=== PATIENT | male | born 2000 | race Caucasian/White ===

== ENCOUNTER 2018-06-20 18:48 | Observation (INO) ==
[2018-06-20] MEDS ORDERED: Dextrose 50% in Water 50 ML Vial IV.PUSH PRN ×2 (19:48→21:44)
[2018-06-20] MEDS ORDERED: Sod Chloride 0.9% Inj 1,000 ML IV.SIG ONE (19:48)
--- NOTE | 2018-06-20 19:52 | ED ---
HPI General Chief complaint: Recheck/Abnormal Lab/Rx Stated complaint: high blood sugar Time Seen by Provider: 06/20/18 19:41 Source: patient and other (family friend/ BRUSH WORKER) Mode of arrival: ambulatory Limitations: no limitations History of Present Illness HPI narrative: 17-year-old male presents to the emergency department by private transportation the care of family friend who is a BRUSH WORKER presents for evaluation of unintentional 25 pound weight loss over the past 4 weeks, polydipsia polyuria and today noted to have elevated blood sugar by family friends glucometer. Patient reportedly is otherwise in good health with no medical concerns or conditions. Patient remotely treated for ADHD was on Adderall but has not been on this medication recently. Patient has been feeling well other than weight loss and marked increased thirst. Patient is also noticed increased urine output. No report of polyphagia. Patient's had no fever no chills no nausea no vomiting. Family history of diabetes in grandfather. Onset (ago): day(s) Related Data Home Medications Medication Instructions Recorded Confirmed No Known Home Medications 06/20/18 06/20/18 Allergies Allergy/AdvReac Type Severity Reaction Status Date / Time No Known Allergies Allergy Verified 06/20/18 19:27 [facility] Medical History Medical History ADHD (Acute) Surgical History Surgical History No history of previous surgery (Acute) Social History Social History Substance History: No History of Abuse Second Hand Smoke Exposure: No Smoking Status: Never smoker How Often Do You Have a Drink Containing Alcohol: Never Recent Travel in [place] within the Last 8 Weeks: No Recent Out of Country Travel within the Last 8 Weeks: No Immunization History Tetanus Immunization: Unsure Hx Influenza Vaccine This Season: No Course Initial Documented Vital Signs Temperature 98.9 F 06/20/18 19:27 Pulse Rate 74 06/20/18 19:27 Respiratory Rate 18 06/20/18 19:27 Blood Pressure 140/73 06/20/18 19:27 Pulse Oximetry 97 06/20/18 19:27 Last Documented Vital Signs Temperature 98.9 F 06/20/18 19:27 Pulse Rate 72 06/20/18 20:39 Respiratory Rate 18 06/20/18 20:39 Blood Pressure 133/70 06/20/18 20:39 Pulse Oximetry 98 06/20/18 20:40 Medical Decision Making [facility] Narrative Medical decision making narrative: 17-year-old male presents to the emergency department for 1 month weight loss with polyuria and polydipsia no polyphagia. Patient was identified to have elevated blood sugar read as high by glucometer at home IV access obtained specimens collected and sent for resulting Bedside BGM read as greater than 600 Called with serum glucose of 655 patient is a received a liter of fluid given additional liter of normal saline and 7 units regular insulin IV for new onset diabetes bicarb and anion gap pending however venous pH in normal range at 7.36 and bicarb 27.7 no evidence of acidosis as of this time. Bicarb and anion gap are not abnormal at this time however. Beta- hydroxybutyric acid level is elevated at 2.21; patient will be admitted for new onset diabetes. Patient's potassium level is in normal range and creatinine are found to be in normal range. Repeat post insulin bgm: 357. Patient informed of plan for admission Discussed case with [facility] MD Dr Zepeda -- agrees to admit to his service as observation Medical Screen Exam Complete: Yes Emergency Medical Condition: Yes Differential Diagnosis Differential Diagnosis: Weight loss, new-onset diabetes, DKA, thyroid dysfunction Medical Records Medical records reviewed: Yes I reviewed the patient's medical records. Lab Data Lab results reviewed: Yes I reviewed the patient's lab results. Result diagrams: 06/20/18 20:15 06/20/18 20:15 Lab Results 06/20/18 06/20/18 06/20/18 Range/Units 20:10 20:15 20:15 CBC w Diff Auto diff final WBC 4.3 (4.0-11.0) th/mm3 RBC 4.89 (4.50-5.90) mil/mm3 Hgb 14.6 (13.0-17.0) gm/dL Hct 42.8 (39.0-51.0) % MCV 87.5 (80.0-100.0) fL MCH 29.8 (27.0-34.0) pg MCHC 34.0 (32.0-36.0) % RDW 11.8 (11.6-17.2) % Plt Count 230 (150-450) th/mm3 MPV 10.1 (7.0-11.0) fL Neut % (Auto) 52.4 (16.0-70.0) % Lymph % (Auto) 37.4 (9.0-44.0) % [place] % (Auto) 6.7 (0.0-8.0) % Eos % (Auto) 2.3 (0.0-4.0) % Baso % (Auto) 1.2 (0.0-2.0) % Neut # (Auto) 2.2 (1.8-7.7) th/mm3 Lymph # (Auto) 1.6 (1.0-4.8) th/mm3 [place] # (Auto) 0.3 (0.0-0.9) th/mm3 Eos # (Auto) 0.1 (0.0-0.4) th/mm3 Baso # (Auto) 0.1 (0.0-0.2) th/mm3 WBC Differential . Differential Comment . Puncture Site Right ac Patient Temperature 98.6 VBG pH 7.36 (7.360-7.400) VBG pCO2 51 H (44-48) mmHG VBG pO2 27 L* (35-40) mmHG VBG HCO3 28 H (22-26) mmol/L VBG O2 Saturation 47 L (70-76) % VBG O2 Content 10.0 (9.0-17.0) Vol % VBG Base Excess 2.7 H (-2-2) mmol/L VBG Carboxyhemoglobin 1.1 (0-4) % VBG Methemoglobin 1.6 (0-2) % Hemoglobin 15.2 (12.0-16.0) G/DL Inspired O2 21 % Critical Value Yes Sodium 129 L (136-145) meq/L Potassium 4.3 (3.5-5.1) meq/L Chloride 92 L (98-107) meq/L Carbon Dioxide 27.2 (21.0-32.0) meq/L Anion Gap 10 (5-15) meq/L BUN 11 (7-18) mg/dL Creatinine 1.20 (0.60-1.30) mg/dL Estimated GFR 78 L (>89) mL/min POC Glucose (68-110) mg/dl Random Glucose 655 H* (74-106) mg/dL Calcium 9.1 (8.5-10.1) mg/dL Magnesium 2.3 (1.5-2.5) mg/dL Total Bilirubin 0.9 (0.2-1.0) mg/dL AST 22 (15-39) U/L ALT 52 (9-52) U/L Alkaline Phosphatase 151 H (45-117) U/L Total Protein 7.8 (6.4-8.2) g/dL Albumin 4.6 (3.4-5.0) g/dL Beta-Hydroxybutyric Acd 2.21 H (0.00-0.39) mmol/L Urine Color (Yellw/Straw) Urine Clarity (Clear) Urine pH (5.0-8.5) Ur Specific [place] (1.002-1.035) Urine Protein (Neg-Trace) mg/dL Urine Glucose (UA) (Negative) mg/dL Urine Ketones (Negative) mg/dL Urine Occult Blood (Negative) Urine Nitrate (Negative) Urine Bilirubin (Negative) Urine Urobilinogen (Less than 2) mg/dL Ur Leukocyte Esterase (Negative) Urine RBC (0-3) /hpf Micro UA Comment Ur Microscopic Review Urine Culture Comments 06/20/18 06/20/18 06/20/18 Range/Units 20:25 20:30 21:19 CBC w Diff WBC (4.0-11.0) th/mm3 RBC (4.50-5.90) mil/mm3 Hgb (13.0-17.0) gm/dL Hct (39.0-51.0) % MCV (80.0-100.0) fL MCH (27.0-34.0) pg MCHC (32.0-36.0) % RDW (11.6-17.2) % Plt Count (150-450) th/mm3 MPV (7.0-11.0) fL Neut % (Auto) (16.0-70.0) % Lymph % (Auto) (9.0-44.0) % [place] % (Auto) (0.0-8.0) % Eos % (Auto) (0.0-4.0) % Baso % (Auto) (0.0-2.0) % Neut # (Auto) (1.8-7.7) th/mm3 Lymph # (Auto) (1.0-4.8) th/mm3 [place] # (Auto) (0.0-0.9) th/mm3 Eos # (Auto) (0.0-0.4) th/mm3 Baso # (Auto) (0.0-0.2) th/mm3 WBC Differential Differential Comment Puncture Site Patient Temperature VBG pH (7.360-7.400) VBG pCO2 (44-48) mmHG VBG pO2 (35-40) mmHG VBG HCO3 (22-26) mmol/L VBG O2 Saturation (70-76) % VBG O2 Content (9.0-17.0) Vol % VBG Base Excess (-2-2) mmol/L VBG Carboxyhemoglobin (0-4) % VBG Methemoglobin (0-2) % Hemoglobin (12.0-16.0) G/DL Inspired O2 % Critical Value Sodium (136-145) meq/L Potassium (3.5-5.1) meq/L Chloride (98-107) meq/L Carbon Dioxide (21.0-32.0) meq/L Anion Gap (5-15) meq/L BUN (7-18) mg/dL Creatinine (0.60-1.30) mg/dL Estimated GFR (>89) mL/min POC Glucose Greater than 600 H* 358 H (68-110) mg/dl Random Glucose (74-106) mg/dL Calcium (8.5-10.1) mg/dL Magnesium (1.5-2.5) mg/dL Total Bilirubin (0.2-1.0) mg/dL AST (15-39) U/L ALT (9-52) U/L Alkaline Phosphatase (45-117) U/L Total Protein (6.4-8.2) g/dL Albumin (3.4-5.0) g/dL Beta-Hydroxybutyric Acd (0.00-0.39) mmol/L Urine Color Straw (Yellw/Straw) Urine Clarity Clear (Clear) Urine pH 6.0 (5.0-8.5) Ur Specific [place] Less/equal 1.005 (1.002-1.035) Urine Protein Negative (Neg-Trace) mg/dL Urine Glucose (UA) 1000 or greater H (Negative) mg/dL Urine Ketones 15 H (Negative) mg/dL Urine Occult Blood Negative (Negative) Urine Nitrate Negative (Negative) Urine Bilirubin Negative (Negative) Urine Urobilinogen 0.2 (Less than 2) mg/dL Ur Leukocyte Esterase Negative (Negative) Urine RBC 0-3 (0-3) /hpf Micro UA Comment Culture not ind Ur Microscopic Review Microscopic reviewed Urine Culture Comments Culture not ind Discharge Plan Discharge Disposition Patient Disposition: 30 Still Patient Discharge Condition Condition: Stable Discharge Details Diagnosis: New onset type 1 diabetes mellitus, uncontrolled Physicians Team ED Provider: Albina Browning Primary Care Provider: Emery Dunn Rxs /Orders / Referrals /Forms Prescriptions: No Action No Known Home Medications RF: 0 Status ED Status: With Doctor
[2018-06-20 20:19] LABS: Baso # (Auto) 0.1 th/mm3 (0.0-0.2); Baso % (Auto) 1.2 % (0.0-2.0); Eos # (Auto) 0.1 th/mm3 (0.0-0.4); Eos % (Auto) 2.3 % (0.0-4.0); Hematocrit 42.8 % (39.0-51.0); Hemoglobin 14.6 gm/dL (13.0-17.0); Lymph # (Auto) 1.6 th/mm3 (1.0-4.8); Lymph % (Auto) 37.4 % (9.0-44.0); Mean Corpuscular Hemoglobin 29.8 pg (27.0-34.0); Mean Corpuscular Volume 87.5 fL (80.0-100.0); Mean Platelet Volume 10.1 fL (7.0-11.0); Mono # (Auto) 0.3 th/mm3 (0.0-0.9); Mono % (Auto) 6.7 % (0.0-8.0); Neut # (Auto) 2.2 th/mm3 (1.8-7.7); Neut % (Auto) 52.4 % (16.0-70.0); Platelet Count 230 th/mm3 (150-450); Red Blood Count 4.89 mil/mm3 (4.50-5.90); Red Cell Distribution Width 11.8 % (11.6-17.2); White Blood Count 4.3 th/mm3 (4.0-11.0)
[2018-06-20 20:23] LABS: VBG Base Excess 2.7 mmol/L (-2-2); VBG PCO2 51 mmHG (44-48); VBG PH 7.36 (7.360-7.400); VBG PO2 27 mmHG (35-40)
[2018-06-20 20:26] LABS: Chloride 92 meq/L (98-107); Potassium 4.3 meq/L (3.5-5.1); Sodium 129 meq/L (136-145)
[2018-06-20 20:31] LABS: Albumin 4.6 g/dL (3.4-5.0); Anion Gap 10 meq/L (5-15); Blood Urea Nitrogen 11 mg/dL (7-18); Calcium 9.1 mg/dL (8.5-10.1); Carbon Dioxide 27.2 meq/L (21.0-32.0); Magnesium 2.3 mg/dL (1.5-2.5)
[2018-06-20 20:33] LABS: Alanine Aminotransferase 52 U/L (9-52); Aspartate Aminotransferase 22 U/L (15-39)
[2018-06-20 20:34] LABS: Beta Hydroxybutyric Acid 2.21 mmol/L (0.00-0.39); Glomerular Filtration Rate 78 mL/min (>89)
[2018-06-20 20:35] LABS: Total Protein 7.8 g/dL (6.4-8.2)
[2018-06-20 20:37] LABS: Alkaline Phosphatase 151 U/L (45-117)
[2018-06-20 20:38] LABS: Glucose,Random 655 mg/dL (74-106)
[2018-06-20 20:43] LABS: Bilirubin,Urine Negative (Negative); Clarity,Urine Clear (Clear); Leukocyte Esterase,Urine Negative (Negative); Nitrite,Urine Negative (Negative); Specific Gravity,Urine Less/Equal 1.005 (1.002-1.035); Urobilinogen,Urine 0.2 mg/dL (Less than 2)
[2018-06-20] MEDS ORDERED: Sod Chloride 0.9% Inj 1,000 ML IV.SIG SCH (20:45)
[2018-06-20 20:46] LABS: Color,Urine Straw (Yellw/Straw)
[2018-06-20 20:47] LABS: RBC,Urine 0-3 /hpf (0-3)
[2018-06-20] MEDS ORDERED: Insulin Detemir Inj 1,000 UNIT/10 ML Vial SQ SCH (21:45)
[2018-06-20] MEDS ORDERED: Bisacodyl 10 MG Supp RECTAL PRN (21:46)
[2018-06-20] MEDS: Sod Chloride 0.9% Inj 1,000 ML IV.CONT SCH (22:01)
[2018-06-20 22:58] LABS: Amphetamine Screen,Urine Neg (Neg); Barbiturate Screen,Urine Neg (Neg); Cannabinoid Screen,Urine Neg (Neg); Cocaine Screen,Urine Neg (Neg)
[2018-06-20 23:07] LABS: Opiate Screen,Urine Neg (Neg)
[2018-06-21] MEDS: Insulin NovoLOG Aspart Correctional Sugar Inj SQ SCH ×4 (03:17→17:13)
[2018-06-21 06:05] LABS: Baso # (Auto) 0.1 th/mm3 (0.0-0.2); Baso % (Auto) 2.6 % (0.0-2.0); Eos # (Auto) 0.2 th/mm3 (0.0-0.4); Hemoglobin 13.1 gm/dL (13.0-17.0); Lymph # (Auto) 2.3 th/mm3 (1.0-4.8); Lymph % (Auto) 44.9 % (9.0-44.0); Mean Corpuscular HGB Conc 33.6 % (32.0-36.0); Mean Corpuscular Hemoglobin 29.4 pg (27.0-34.0); Mean Corpuscular Volume 87.6 fL (80.0-100.0); Mean Platelet Volume 9.8 fL (7.0-11.0); Mono # (Auto) 0.4 th/mm3 (0.0-0.9); Mono % (Auto) 7.7 % (0.0-8.0); Neut # (Auto) 2.1 th/mm3 (1.8-7.7); Neut % (Auto) 40.8 % (16.0-70.0); Platelet Count 200 th/mm3 (150-450); Red Blood Count 4.45 mil/mm3 (4.50-5.90); Red Cell Distribution Width 11.7 % (11.6-17.2); White Blood Count 5.1 th/mm3 (4.0-11.0)
[2018-06-21] MEDS ORDERED: Acetaminophen 325 MG Tablet PO PRN (06:17)
[2018-06-21] MEDS ORDERED: Senna/Docusate Sodium 8.6/50 MG Tablet PO PRN (06:17)
[2018-06-21] MEDS ORDERED: Docusate Sodium 100 MG Capsule PO PRN (06:17)
[2018-06-21] MEDS ORDERED: Aluminum/Magnesium/Simethacone Susp 30 ML UDC PO PRN (06:17)
[2018-06-21 06:35] LABS: Alanine Aminotransferase 45 U/L (9-52); Albumin 3.6 g/dL (3.4-5.0); Alkaline Phosphatase 98 U/L (45-117); Anion Gap 7 meq/L (5-15); Aspartate Aminotransferase 21 U/L (15-39); Blood Urea Nitrogen 8 mg/dL (7-18); Calcium 8.2 mg/dL (8.5-10.1); Carbon Dioxide 28.1 meq/L (21.0-32.0); Chloride 106 meq/L (98-107); Glomerular Filtration Rate Greater Than 89 mL/min (>89); Glucose,Random 209 mg/dL (74-106); Potassium 3.6 meq/L (3.5-5.1); Sodium 141 meq/L (136-145); Total Protein 6.1 g/dL (6.4-8.2)
[2018-06-21] MEDS: Sod Chloride 0.9% Inj 1,000 ML IV.CONT SCH (08:01)
--- NOTE | 2018-06-21 11:04 | P.HP ---
History of Present Illness Primary Care Physician: Emery Dunn MD Chief Complaint: Elevated blood sugar History of Present Illness: This is a 17-year-old male with no significant past medical history. He presents to the emergency department because of elevated blood sugar. He has been having polyuria, polydipsia and an intentional weight loss of 22 pounds for the past 3-4 weeks. No visual changes. He was left to the care of a family friend who is a BIOLOGICAL TECHNICAL OFFICER. She then checked his fingerstick which was elevated, blood glucose of 677 on admission. Anion gap was within normal limits pH of 7.35. Patient was then started on aggressive IV hydration and has received a total of 18 units of short acting insulin. At this time he is feeling much better without symptoms and wants to be discharged at the day and of the day. He will be under the care of a nurse family friend. Patient also has an appointment with his PCP tomorrow at 8:30 in the morning. All other systems reviewed negative. No recent URI. Denies abdominal pain. Review of Systems All other systems reviewed negative except as stated in HPI PMFSH - History History Provided By: Patient - Medical History Medical History: Medical History (Last Reviewed 06/21/18 @ 13:41 by Diaz Orozco MD) ADHD - Surgical History Surgical History: Surgical History (Last Reviewed 06/21/18 @ 13:41 by Diaz Orozco MD) No history of previous surgery - Family History Family History: Family History (Last Updated 06/21/18 @ 13:41 by Diaz Orozco MD) Other Family history of diabetes mellitus - Tobacco History Second Hand Smoke Exposure: No Tobacco Use In Past 30 Days: No Smoking Status: Never smoker - Alcohol History How Often Do You Have a Drink Containing Alcohol: Never - Substance Use History Substance History: No History of Abuse - Travel History Recent Travel in the [place] Within the Last 8 Weeks: No Recent Travel Out of the Country Within the Last 8 Weeks: No - Immunization History Tetanus Immunization: <5 Years Hx Influenza Vaccine This Season: No Medications and Allergies Active Medications: Active Medications Acetaminophen (Tylenol) 650 mg PO Q4H PRN PRN Reason: Temp > 100.4 Al Hydrox/Mg Hydrox/Simethicone (Mag-Al Plus Susp Liq) 30 ml PO Q6H PRN PRN Reason: DYSPEPSIA Al Hydroxide/Mg Hydroxide (Milk Of Magnesia Liq) 30 ml PO Q12H PRN PRN Reason: Mild Constipation Bisacodyl (Dulcolax Supp) 10 mg RECTAL DAILY PRN PRN Reason: SEVERE CONSITIPATION Calcium Carbonate (Tums Chew) 1,000 mg CHEW TID PRN PRN Reason: DYSPEPSIA Dextrose (D50w Vial) 50 ml IV.PUSH UNSCH PRN PRN Reason: PER HYPOGLYCEMIA PROTOCOL Docusate Sodium (Colace) 100 mg PO BID PRN PRN Reason: CONSTIPATION Glucagon (Glucagon Inj) 1 mg OTHER PRN PRN PRN Reason: for Hypoglycemia Protocol Sodium Chloride (Ns Inj) 1,000 mls @ 100 mls/hr IV.CONT .Q10H JANETH Last Infusion: 06/20/18 23:02 Dose: 100 mls/hr Potassium Chloride/Sodium Chloride (Ns + Kcl 20 Meq Inj) 1,000 mls @ 100 mls/ hr IV.CONT .Q10H JANETH Last Admin: 06/21/18 08:42 Dose: 100 mls/hr Insulin Aspart (Novolog Insulin Correctional Sugar Inj) 0 unit SQ ACHS AND 3AM JANETH; Protocol Last Admin: 06/21/18 08:42 Dose: 1 unit Lactulose (Lactulose Liq) 30 ml PO DAILY PRN PRN Reason: SEVERE CONSITIPATION Ondansetron HCl (Zofran Inj) 4 mg IV.PUSH Q6H PRN PRN Reason: NAUSEA Senna/Docusate Sodium (Yesi-Colace) 1 tab PO BID PRN PRN Reason: CONSTIPATION Sennosides (Senokot) 17.2 mg PO Q12H PRN PRN Reason: Moderate Constipation Sodium Chloride (Ns Flush) 2 ml IV.FLUSH PRN PRN PRN Reason: FLUSH AFTER USING IV ACCESS Last Admin: 06/20/18 21:12 Dose: 2 ml Allergies Allergy/AdvReac Type Severity Reaction Status Date / Time No Known Allergies Allergy Verified 06/20/18 19:27 Home Medications Medication Instructions Recorded Confirmed Type No Known Home Medications 06/20/18 06/20/18 History Exam Vital signs: Vital Signs 06/20/18 19:27 06/20/18 20:39 06/20/18 20:40 Temperature 98.9 F Pulse Rate 74 72 Respiratory Rate 18 18 Blood Pressure 140/73 133/70 Pulse Oximetry 97 98 98 06/20/18 22:59 06/21/18 00:00 06/21/18 08:00 Temperature 97.8 F 97.2 F L Pulse Rate 70 84 93 H Respiratory Rate 18 18 19 Blood Pressure 128/76 124/64 116/71 Pulse Oximetry 98 97 97 Intake & Output 06/20/18 06/21/18 06/21/18 18:59 06:59 18:59 Intake Total 2200 / 2200 240 / 240 Balance 2200 / 2200 240 / 240 Weight 73.8 kg Intake: IV 1999 NS Inj 1,000 ML @ Wide Open IV. 1999 SIG BOLUS JANETH Rx#:[id number] Oral 200 / 200 240 / 240 Other: # Voids 2 Weight On Admission 73.7 kg Narrative: GENERAL: Well-developed, well-nourished in no distress SKIN: Warm and dry. HEAD: Atraumatic. Normocephalic. EYES: Pupils equal and round. No scleral icterus. No injection or drainage. ENT: No nasal bleeding or discharge. Mucous membranes pink and moist. NECK: Trachea midline. No JVD. CARDIOVASCULAR: Regular rate and rhythm. RESPIRATORY: No accessory muscle use. Clear to auscultation. Breath sounds equal bilaterally. GASTROINTESTINAL: Abdomen soft, non-tender, nondistended. MUSCULOSKELETAL: Extremities without clubbing, cyanosis, or edema. No obvious deformities. NEUROLOGICAL: Awake and alert. No obvious cranial nerve deficits. Motor grossly within normal limits. Five out of 5 muscle strength in the arms and legs. Normal speech. PSYCHIATRIC: Appropriate mood and affect; insight and judgment normal. Results - Labs CBC & Chem 7: 06/21/18 05:29 06/21/18 05:29 Labs: Laboratory Results - last 24 hr 06/20/18 06/20/18 06/20/18 20:10 20:15 20:15 CBC w Diff Auto diff final WBC 4.3 RBC 4.89 Hgb 14.6 Hct 42.8 MCV 87.5 MCH 29.8 MCHC 34.0 RDW 11.8 Plt Count 230 MPV 10.1 Neut % (Auto) 52.4 Lymph % (Auto) 37.4 [place] % (Auto) 6.7 Eos % (Auto) 2.3 Baso % (Auto) 1.2 Neut # (Auto) 2.2 Lymph # (Auto) 1.6 [place] # (Auto) 0.3 Eos # (Auto) 0.1 Baso # (Auto) 0.1 WBC Differential . Differential Comment . Puncture Site Right ac Patient Temperature 98.6 VBG pH 7.36 VBG pCO2 51 H VBG pO2 27 L* VBG HCO3 28 H VBG O2 Saturation 47 L VBG O2 Content 10.0 VBG Base Excess 2.7 H VBG Carboxyhemoglobin 1.1 VBG Methemoglobin 1.6 Hemoglobin 15.2 Inspired O2 21 Critical Value Yes Sodium 129 L Potassium 4.3 Chloride 92 L Carbon Dioxide 27.2 Anion Gap 10 BUN 11 Creatinine 1.20 Estimated GFR 78 L POC Glucose Random Glucose 655 H* Calcium 9.1 Magnesium 2.3 Total Bilirubin 0.9 AST 22 ALT 52 Alkaline Phosphatase 151 H Total Protein 7.8 Albumin 4.6 Beta-Hydroxybutyric Acd 2.21 H Urine Color Urine Clarity Urine pH Ur Specific [place] Urine Protein Urine Glucose (UA) Urine Ketones Urine Occult Blood Urine Nitrate Urine Bilirubin Urine Urobilinogen Ur Leukocyte Esterase Urine RBC Micro UA Comment Ur Microscopic Review Urine Culture Comments Urine Opiates Screen Ur Barbiturates Screen Ur Amphetamines Screen U Benzodiazepines Scrn Urine Cocaine Screen U Cannabinoids Screen 06/20/18 06/20/18 06/20/18 20:25 20:30 20:30 CBC w Diff WBC RBC Hgb Hct MCV MCH MCHC RDW Plt Count MPV Neut % (Auto) Lymph % (Auto) [place] % (Auto) Eos % (Auto) Baso % (Auto) Neut # (Auto) Lymph # (Auto) [place] # (Auto) Eos # (Auto) Baso # (Auto) WBC Differential Differential Comment Puncture Site Patient Temperature VBG pH VBG pCO2 VBG pO2 VBG HCO3 VBG O2 Saturation VBG O2 Content VBG Base Excess VBG Carboxyhemoglobin VBG Methemoglobin Hemoglobin Inspired O2 Critical Value Sodium Potassium Chloride Carbon Dioxide Anion Gap BUN Creatinine Estimated GFR POC Glucose Greater than 600 H* Random Glucose Calcium Magnesium Total Bilirubin AST ALT Alkaline Phosphatase Total Protein Albumin Beta-Hydroxybutyric Acd Urine Color Straw Urine Clarity Clear Urine pH 6.0 Ur Specific [place] Less/equal 1.005 Urine Protein Negative Urine Glucose (UA) 1000 or greater H Urine Ketones 15 H Urine Occult Blood Negative Urine Nitrate Negative Urine Bilirubin Negative Urine Urobilinogen 0.2 Ur Leukocyte Esterase Negative Urine RBC 0-3 Micro UA Comment Culture not ind Ur Microscopic Review Microscopic reviewed Urine Culture Comments Culture not ind Urine Opiates Screen Neg Ur Barbiturates Screen Neg Ur Amphetamines Screen Neg U Benzodiazepines Scrn Neg Urine Cocaine Screen Neg U Cannabinoids Screen Neg 06/20/18 06/21/18 06/21/18 21:19 03:08 05:23 CBC w Diff WBC RBC Hgb Hct MCV MCH MCHC RDW Plt Count MPV Neut % (Auto) Lymph % (Auto) [place] % (Auto) Eos % (Auto) Baso % (Auto) Neut # (Auto) Lymph # (Auto) [place] # (Auto) Eos # (Auto) Baso # (Auto) WBC Differential Differential Comment Puncture Site Patient Temperature VBG pH VBG pCO2 VBG pO2 VBG HCO3 VBG O2 Saturation VBG O2 Content VBG Base Excess VBG Carboxyhemoglobin VBG Methemoglobin Hemoglobin Inspired O2 Critical Value Sodium Potassium Chloride Carbon Dioxide Anion Gap BUN Creatinine Estimated GFR POC Glucose 358 H 267 H Random Glucose Calcium Magnesium 2.1 Total Bilirubin AST ALT Alkaline Phosphatase Total Protein Albumin Beta-Hydroxybutyric Acd Urine Color Urine Clarity Urine pH Ur Specific [place] Urine Protein Urine Glucose (UA) Urine Ketones Urine Occult Blood Urine Nitrate Urine Bilirubin Urine Urobilinogen Ur Leukocyte Esterase Urine RBC Micro UA Comment Ur Microscopic Review Urine Culture Comments Urine Opiates Screen Ur Barbiturates Screen Ur Amphetamines Screen U Benzodiazepines Scrn Urine Cocaine Screen U Cannabinoids Screen 06/21/18 06/21/18 06/21/18 05:29 05:29 08:09 CBC w Diff Auto diff final WBC 5.1 RBC 4.45 L Hgb 13.1 Hct 39.0 MCV 87.6 MCH 29.4 MCHC 33.6 RDW 11.7 Plt Count 200 MPV 9.8 Neut % (Auto) 40.8 Lymph % (Auto) 44.9 H [place] % (Auto) 7.7 Eos % (Auto) 4.0 Baso % (Auto) 2.6 H Neut # (Auto) 2.1 Lymph # (Auto) 2.3 [place] # (Auto) 0.4 Eos # (Auto) 0.2 Baso # (Auto) 0.1 WBC Differential . Differential Comment . Puncture Site Patient Temperature VBG pH VBG pCO2 VBG pO2 VBG HCO3 VBG O2 Saturation VBG O2 Content VBG Base Excess VBG Carboxyhemoglobin VBG Methemoglobin Hemoglobin Inspired O2 Critical Value Sodium 141 D Potassium 3.6 Chloride 106 D Carbon Dioxide 28.1 Anion Gap 7 BUN 8 Creatinine 0.79 Estimated GFR Greater than 89 POC Glucose 195 H Random Glucose 209 H D Calcium 8.2 L D Magnesium Total Bilirubin 0.6 AST 21 ALT 45 Alkaline Phosphatase 98 Total Protein 6.1 L D Albumin 3.6 D Beta-Hydroxybutyric Acd Urine Color Urine Clarity Urine pH Ur Specific [place] Urine Protein Urine Glucose (UA) Urine Ketones Urine Occult Blood Urine Nitrate Urine Bilirubin Urine Urobilinogen Ur Leukocyte Esterase Urine RBC Micro UA Comment Ur Microscopic Review Urine Culture Comments Urine Opiates Screen Ur Barbiturates Screen Ur Amphetamines Screen U Benzodiazepines Scrn Urine Cocaine Screen U Cannabinoids Screen Caprini VTE Risk Assessment Caprini VTE Risk Assessment: No/Low Risk (score <= 1) Caprini Risk Assessment Model: Point Value = 1 Point Value = 2 Point Value = 3 Point Value = 5 Age 41-60 Minor surgery BMI > 25 kg/m2 Swollen legs Varicose veins or History of unexplained or recurrent spontaneous Oral contraceptives or hormone replacement Sepsis (< 1 month) Serious lung disease, including pneumonia (< 1 month) Abnormal pulmonary function Acute myocardial infarction Congestive heart failure (< 1 month) History of inflammatory bowel disease Medical patient at bed rest Age 61-74 Arthroscopic surgery Major open surgery (> 45 min) Laparoscopic surgery (> 45 min) Malignancy Confined to bed (> 72 hours) Immobilizing plaster cast Central venous access Age >= 75 History of VTE Family history of VTE Factor V Leiden Prothrombin [id number] Lupus anticoagulant Anticardiolipin antibodies Elevated serum homocysteine Heparin-induced thrombocytopenia Other congenital or acquired thrombophilia Stroke (< 1 month) Elective arthroplasty Hip, pelvis, or leg fracture Acute spinal cord injury (< 1 month) Prophylaxis Regimen: Total Risk Factor Score Risk Level Prophylaxis Regimen 0-1 Low Early ambulation 2 Moderate Order ONE of the following: *Sequential Compression Device (SCD) *Heparin 5000 units SQ BID 3-4 Higher Order ONE of the following medications: *Heparin 5000 units SQ TID *Enoxaparin/Lovenox 40 mg SQ daily (WT < 150 kg, CrCl > 30 mL/min) *Enoxaparin/Lovenox 30 mg SQ daily (WT < 150 kg, CrCl > 10-29 mL/min) *Enoxaparin/Lovenox 30 mg SQ BID (WT < 150 kg, CrCl > 30 mL/min) AND/OR *Sequential Compression Device (SCD) 5 or more Highest Order ONE of the following medications: *Heparin 5000 units SQ TID (Preferred with Epidurals) *Enoxaparin/Lovenox 40 mg SQ daily (WT < 150 kg, CrCl > 30 mL/min) *Enoxaparin/Lovenox 30 mg SQ daily (WT < 150 kg, CrCl > 10-29 mL/min) *Enoxaparin/Lovenox 30 mg SQ BID (WT < 150 kg, CrCl > 30 mL/min) AND *Sequential Compression Device (SCD) Assessment and Plan - Plan This is a 17-year-old male with no significant past medical history. He presents to the emergency department because of elevated blood sugar. He has been having polyuria, polydipsia and an intentional weight loss of 22 pounds for the past 3-4 weeks. New onset diabetes mellitus. He is stable. Continue aggressive IV hydration. Start units in the morning and 6 units in the evening and continue fingerstick monitoring with sliding scale coverage. Diabetic education. Pseudohyponatremia. Will monitor Low risk for DVT Discharge Planning: Discharge patient to home if fingerstick less than 250 Condition on discharge: Improved Diabetic diet Ad Angie activity no driving Rx written: 70/30 insulin Follow-up with primary care physician in the morning
[2018-06-21 11:56] VITALS: RESP 20
[2018-06-21 16:30] VITALS: BP 123/72; PULSE 71; TEMP 98.2; O2SAT 97
[2018-06-21 17:13] LABS: Hemoglobin A1c 11.8 % (4.3-6.0)
== END 2018-06-21 17:59 | disposition home or self-care (01) ==
LOC: PHED 18:48 → PHEDA 18:48 → PH3 23:18
PROVIDERS: ADMIT Internal Medicine; ATTEND Internal Medicine